=== PATIENT | female | born 1960 | race Caucasian/White ===

== ENCOUNTER 2020-01-09 06:41 | Emergency (ER) | payer SELFPAY ==
[2020-01-09 07:28] LABS: APPEARANCE,URINE SLIGHTLY-CLOUDY; BILIRUBIN,URINE NEGATIVE (NEGATIVE); CALCIUM OXALATE CRYSTALS,URINE TOO NUMEROUS TO CNT /HPF; COLOR,URINE YELLOW; GLUCOSE, URINE NEGATIVE (NEGATIVE); KETONES,URINE NEGATIVE (NEGATIVE); LEUKOCYTE ESTERASE,URINE TRACE (NEGATIVE); NITRITE,URINE NEGATIVE (NEGATIVE); PROTEIN,URINE NEGATIVE (NEGATIVE); URINE SPECIFIC GRAVITY 1.017; UROBILINOGEN,URINE NEGATIVE mg/dL (<2.0)
[2020-01-09] MEDS ORDERED: ONDANSETRON HCL INJ/PF 4 MG/2 ML SDV IV ONE (07:42)
[2020-01-09] MEDS ORDERED: HYDROMORPHONE HCL INJ/PF 2 MG/ML AMPULE IV ONE (07:42)
[2020-01-09] MEDS ORDERED: NORMAL SALINE 1000 ML 1,000 ML IV ONE (07:42)
--- NOTE | 2020-01-09 07:46 | ER Document Report ---
ED General - General Chief Complaint: Possible Kidney Stone Stated Complaint: RIGHT FLANK PAIN Time Seen by Provider: 01/09/20 07:36 Primary Care Provider: YUMIKO MCCRAY MD [NO LOCAL MD] - Follow up as needed SHERYL EISENBERG MD [Primary Care Provider] - Follow up as needed TRAVEL OUTSIDE OF THE [place] IN LAST 30 DAYS: No - HPI Notes: Chief complaint: Right flank pain and right lower quadrant abdominal pain History of present illness: 59-year-old female with remote past history of renal stones awakened from sleep around 4 AM with severe right flank pain radiating to right lower quadrant and into groin. Pain is 10/10 intensity. Associated with nausea but no vomiting. No fever chills. No gross hematuria. Prior medical history is otherwise remarkable only for mild hypothyroidism. Primary care provider: Neil - Related Data Allergies/Adverse Reactions: latex Allergy (Verified 04/15/16 11:58) Home Medications: synthroid Past Medical History - General Information source: Patient, Parent, [facility] Records - Social History Smoking Status: Never Smoker Frequency of alcohol use: None Drug Abuse: None Family History: Reviewed & Not Pertinent - Past Medical History Cardiac Medical History: Reports: None Endocrine Medical History: Reports: Hx Hypothyroidism. Denies: Hx Diabetes Mellitus Type 1, Hx Diabetes Mellitus Type 2 Renal/ Medical History: Reports: Hx Kidney Stones Musculoskeletal Medical History: Reports Hx Musculoskeletal Deformity, Reports Hx Musculoskeletal Trauma Traumatic Medical History: Reports: Hx Fractures Past Surgical History: Reports: Hx Adenoidectomy, Hx Cholecystectomy, Hx Myringotomy, Hx Oral Surgery, Hx Orthopedic Surgery, Hx Tonsillectomy, Hx Tubal Ligation Review of Systems - Review of Systems Notes: Constitutional: Negative for fever. HENT: Negative for sore throat. Eyes: Negative for visual changes. Cardiovascular: Negative for chest pain. Respiratory: Negative for shortness of breath. Gastrointestinal: As per HPI. Genitourinary: As per HPI. Musculoskeletal: Negative for back pain. Skin: Negative for rash. Neurological: Negative for headaches, weakness or numbness. 10 point ROS negative except as marked above and in HPI. Physical Exam - Vital signs Vitals: Temp Pulse Resp BP Pulse Ox 98.7 F 70 22 H 102/68 98 01/09/20 06:48 01/09/20 06:48 01/09/20 06:48 01/09/20 06:48 01/09/20 06:48 - Notes Notes: GENERAL: Middle-age female who appears restless rocking back and forth on stretcher and loudly screaming in pain. SKIN: Mildly diaphoretic. Pale. Good turgor no rashes. HEAD: Normocephalic atraumatic. EYES: PERRLA. EOMI. Conjunctivae and sclerae clear. EARS: CANALS AND TMS CLEAR. NOSE: CLEAR. MOUTH: Moist mucosa. Good dentition. No stridor or edema. No drooling. NECK: Supple. No masses or thyromegaly. No adenopathy. Carotids 2+ without bruits. No JVD. BACK: Symmetrical without tenderness. CHEST: Respirations unlabored. Breath sounds clear and symmetrical. HEART: Regular rhythm. No murmur gallop or rub. ABDOMEN: Minimal tenderness on deep palpation right lower quadrant. Soft without masses, organomegaly or rebound. Bowel sounds normally active. No bruits. GENITALIA: Deferred. EXTREMITIES: No edema. No calf tenderness. Cap refill less than 1.5 seconds. Dorsalis pedis and posterior tibial pulses 3+ and symmetrical. NEUROLOGICAL: GCS 15. Alert and oriented x3. Normal gait. Fluent speech. Cranial nerves II through XII intact. Sensorimotor and cerebellar normal. Normal tone. PSYCHIATRIC: Appropriate affect. Course - Re-evaluation Re-evalutation: 01/09/20 10:15 59-year-old female with remote past history of renal colic presented with clinically what appeared to be severe renal colic this morning on the right side. She required IV Dilaudid and IV Zofran along with IV normal saline. Clinically she appeared passed stone and felt much better. We subsequently were able to retrieve the stone and have given this to the patient to be taken to urology follow-up appointment. CT urogram showed consistent findings. Patient is stable for outpatient follow-up with urology. Findings, clinical impression and plan of treatment have been discussed with patient/family. Understanding of current findings and recommendations has been acknowledged by them and there is agreement regarding disposition and follow-up. - Vital Signs Vital signs: Temp Pulse Resp BP Pulse Ox 98.7 F 70 17 102/68 99 01/09/20 06:48 01/09/20 06:48 01/09/20 09:00 01/09/20 06:48 01/09/20 09:00 - Laboratory Result Diagrams: 01/09/20 07:44 01/09/20 07:44 Laboratory results interpreted by me: 01/09/20 01/09/20 06:57 07:44 Sodium 136.7 L Potassium 5.3 H Glucose 127 H AST 38 H Urine Blood MODERATE H Ur Leukocyte Esterase TRACE H - Diagnostic Test Radiology reviewed: Reports reviewed - CT abdomen pelvis without contrast per radiologist: 4 mm stone in the bladder with some stranding around the right ureter suggesting recent passage of stone. Discharge - Discharge Clinical Impression: Ureterolithiasis with renal colic right Condition: Stable Disposition: HOME, SELF-CARE Additional Instructions: Kidney Stone You are passing or have passed a kidney stone. These stones are usually due to increased calcium or uric acid concentrations in your urine. Stones within the kidney itself are not painful. The pain occurs as the stone leaves the kidney to pass down the long tube, called the ureter, leading to the bladder. If the stone is small, it will usually pass by itself. Most patients can pass the stone at home. You will usually receive medications for pain, nausea or vomiting, and sometimes a medication to assist in passing the kidney stone. However, if the pain is very severe or if vomiting prevents you from taking oral pain medications, you may need to return for further treatment. Drink three or four quarts of fluids per day. You will be given pain medication (if needed) and urine strainers. Strain all your urine to see if the stone passes. If your doctor has asked you to bring the stone in for analysis, return with the stone once it has passed. Return if pain or vomiting become severe, if you develop a high fever, if you are unable to pass your urine, or if other unusual symptoms occur. Follow-up with referral urologist Take prescribed pain medication as needed. Return here as needed for new or worsening symptoms: Pain that is worsening or unimproved Uncontrolled vomiting High fever or shaking chills Overall worsening Prescriptions: Tramadol HCl [Ultram 50 mg Tablet] 50 mg PO Q4HP PRN #12 tab PRN Reason: Forms: Return to Work Referrals: SHERYL EISENBERG MD [Primary Care Provider] - Follow up as needed YUMIKO MCCRAY MD [NO LOCAL MD] - Follow up as needed
[2020-01-09 08:03] LABS: ABSOLUTE EOSINOPHILS # (AUTO) 0.2 10^3/uL (0.0-0.6); ABSOLUTE MONOCYTES (AUTO) 0.7 10^3/uL (0.1-1.4); BASOPHILS % (AUTO) 0.7 % (0-2); EOSINOPHILS % (AUTO) 2.5 % (0-6); HEMATOCRIT 42.1 % (36.0-47.0); HEMOGLOBIN 14.6 g/dL (12.0-15.5); LYMPHOCYTES % (AUTO) 13.9 % (13-45); MEAN CORPUSCULAR HGB CONC 34.8 g/dL (32.0-36.0); MEAN CORPUSCULAR VOLUME 92 fl (80-97); MONOCYTES % (AUTO) 10.5 % (3-13); PLATELET COUNT 208 10^3/uL (150-450); RED BLOOD COUNT 4.58 10^6/uL (3.72-5.28); RED CELL DISTRIBUTION WIDTH 12.6 % (11.5-14.0); SEGMENTED NEUTROPHILS % (AUTO) 72.4 % (42-78); TOTAL CELLS COUNTED % (AUTO) 100 %; WHITE BLOOD COUNT 6.9 10^3/uL (4.0-10.5)
[2020-01-09 08:22] LABS: ALBUMIN 4.5 g/dL (3.5-5.0); ALKALINE PHOSPHATASE 78 U/L (38-126); ANION GAP 10 (5-19); ASPARTATE AMINO TRANSFERASE 38 U/L (14-36); BILIRUBIN,DIRECT 0.2 mg/dL (0.0-0.4); BILIRUBIN,TOTAL 0.8 mg/dL (0.2-1.3); BLOOD UREA NITROGEN 18 mg/dL (7-20); CALCIUM 9.7 mg/dL (8.4-10.2); CARBON DIOXIDE 26 mmol/L (22-30); CHLORIDE 101 mmol/L (98-107); GLUCOSE 127 mg/dL (75-110); POTASSIUM 5.3 mmol/L (3.6-5.0); TOTAL PROTEIN 6.8 g/dL (6.3-8.2)
[2020-01-09 08:22] LABS: URINE AMPHETAMINES SCREEN NEGATIVE; URINE BARBITURATES SCREEN NEGATIVE; URINE BENZODIAZEPINES SCREEN NEGATIVE; URINE COCAINE SCREEN NEGATIVE; URINE MARIJUANA (THC) SCREEN NEGATIVE; URINE METHADONE SCREEN NEGATIVE; URINE PHENCYCLIDINE SCREEN NEGATIVE
--- NOTE | 2020-01-09 09:05 | RADIOLOGY REPORT (SQ) ---
EXAM DESCRIPTION: CT ABD/PELVIS NO ORAL OR IV IMAGES COMPLETED DATE/TIME: 01/09/2020 8:37 am REASON FOR STUDY: Right flank and right lower quadrant abdominal ayan COMPARISON: CT of the abdomen and pelvis from 04/15/2016. TECHNIQUE: CT scan of the abdomen and pelvis performed without intravenous or oral contrast. Images reviewed with lung, soft tissue, and bone windows. Reconstructed coronal and sagittal MPR images revi ewed. All images stored on PACS. All CT scanners at this facility use dose modulation, iterative reconstruction, and/or weight based d osing when appropriate to reduce radiation dose to as low as reasonably achievable (ALARA). [facility]: Dose Right [facility]: CareDose [facility]: Dose Right [facility]: Teradose 4D [facility]: [employer] RADIATION DOSE: CT Rad equipment meets quality standard of care and radiation dose reduction techniq ues were employed. CTDIvol: 9.2 mGy. DLP: 524 mGy-cm. LIMITATIONS: None. FINDINGS: LOWER CHEST: Atherosclerotic calcification of the aortic valve leaflets. NON-CONTRASTED LIVER, SPLEEN, ADRENALS: Evaluation is limited due to the absence of intravenous contr ast. There is no evidence hepatic steatosis. The spleen is normal in size. There is no adrenal mas s. PANCREAS: No acute gross abnormality of the pancreas. GALLBLADDER: The gallbladder surgically absent. RIGHT KIDNEY AND URETER: Evaluation is limited due to the absence of intravenous contrast. There is asymmetric enlargement of the kidney associated with mild to moderate hydroureteronephrosis and stran ding of the perinephric fat. There is no nephrolithiasis or ureterolithiasis. LEFT KIDNEY AND URETER: Evaluation is limited due to the absence of intravenous contrast. There is n o hydronephrosis, nephrolithiasis, hydroureter or ureterolithiasis. AORTA AND RETROPERITONEUM: No aneurysm of the abdominal aorta. No retroperitoneal adenopathy, hemorr jorge or mass. BOWEL AND PERITONEAL CAVITY: No bowel obstruction, bowel wall thickening or pericolonic/ perienteric inflammation. There is no mesenteric adenopathy, free intraperitoneal fluid or mesenteric/ omental i nflammation. APPENDIX: Normal. PELVIS, BLADDER, AND ABDOMINAL WALL:There is a 4 mm calculus within the urinary bladder (image 81 of series 3). There is no abnormality of the uterus or adnexa that is apparent on CT. There is no abdo golden wall mass or hernia. BONES: No acute findings. OTHER: No other finding. IMPRESSION: 4 mm calculus within the urinary bladder. In the setting of asymmetric enlargement of t he right kidney, right-sided [id number] hydroureteronephrosis and asymmetric stranding of the r ight perinephric fat these findings could represent recent passage of calculus. COMMENT: Quality ID # [id number]: Final reports with documentation of one or more dose reduction techniques (e.g., Automated exposure control, adjustment of the mA and/or kV according to patient size, use of iterative reconstruction technique) TECHNICAL DOCUMENTATION: JOB ID: [id number] 2010 [employer]- All Rights Reserved Reading location - IP/workstation name: [email or web address]
[2020-01-09 10:48] VITALS: BP 138/84
== END 2020-01-09 10:48 | disposition home or self-care (01) ==
LOC: ER 06:41
DX: N20.1 Calculus of ureter (principal); N23 Unspecified renal colic; R11.0 Nausea; Z79.899 Other long term (current) drug therapy
CPT/HCPCS: 99285; 96361; 96374; 96375; 36415; 85025; 80053; 81001; 80307; 74176; J1170; J2405; J7030